=== PATIENT | female | born 1955 | race African-American/Black ===

== ENCOUNTER → 2021-06-10 | Outpatient (CLI) | payer MEDICARE, OTHER ==
[2021-06-11 08:13] LABS: ALBUMIN 4.7 g/dL (3.8-4.8); ALKALINE PHOSPHATASE 43 IU/L (44-121); ALT (SGPT) 19 IU/L (0-32); AST (SGOT) 23 IU/L (0-40); BILIRUBIN, DIRECT <0.10 mg/dL (0.00-0.40); BILIRUBIN, TOTAL <0.2 mg/dL (0.0-1.2); PROTEIN, TOTAL 7.6 g/dL (6.0-8.5)
== END ==
LOC: MRI 05-28 11:00
PROVIDERS: Internal Medicine Gastroenterology
DX: K83.8 Other specified diseases of biliary tract (principal); Z90.49 Acquired absence of other specified parts of digestive tract
CPT/HCPCS: 36415; 74181; 80076; 82150; 83690